=== PATIENT | female | born 1985 | race Caucasian/White ===

== ENCOUNTER 2017-02-14 20:36 | Emergency (ER) | payer MEDICAID, OTHER ==
[2017-02-14 21:15] VITALS: BP 135/91; PULSE 90; TEMP 99.4; O2SAT 98
[2017-02-14] MEDS ORDERED: Promethazine/Cod 6.25mg-10mg/5ml Syr UD PO STA (21:42)
[2017-02-14] MEDS ORDERED: Albuterol 0.083% Inhal Sol (2.5 mg/3 mL) UD IH STA (21:42)
[2017-02-14] MEDS ORDERED: Albuterol 0.083% Inhal Sol (2.5 mg/3 mL) UD ONE (21:48)
[2017-02-14] MEDS ORDERED: Promethazine/Cod 6.25mg-10mg/5ml Syr UD ONE (21:48)
--- NOTE | 2017-02-14 21:48 | C.PDOC ---
History Of Present Illness 31 y/o female with PMHx of asthma presents to ED for evaluation of URI symptoms associated with nasal congestion, sore throat and dry cough for 4 days. Patient was seen by PMD and was given Azithromycin with no improvement. Patient reports , " my chest in on fire", occasional dry cough noted in ED. Patient denies high fever, chills, dizziness, headache, drooling, neck pain, dysphagia, dyspnea, wheezing, abd. pain, n/v/d, denies recent travel or sick contact. Ambulate to Ed for evaluation, not in any apparent distress. Time Seen by Provider: 02/14/17 21:21 Chief Complaint (Nursing): Flu-like Symptoms History Per: Patient History/Exam Limitations: no limitations Onset/Duration Of Symptoms: Days Current Symptoms Are (Timing): Still Present Associated Symptoms: Cough, Nasal Congestion Past Medical History Reviewed: Historical Data, Nursing Documentation, Vital Signs Vital Signs: Last Vital Signs Temp 99.4 F 02/14/17 21:12 Pulse 90 02/14/17 21:12 Resp 16 02/14/17 21:12 BP 135/91 H 02/14/17 21:12 Pulse Ox 98 02/14/17 21:50 - Medical History PMH: Asthma Surgical History: Cholecystectomy Family History: States: Unknown Family Hx - Social History Hx Tobacco Use: Yes Hx Alcohol Use: Yes Hx Substance Use: No - Immunization History Hx Tetanus Toxoid Vaccination: No Hx Influenza Vaccination: No Hx Pneumococcal Vaccination: No Review Of Systems Except As Marked, All Systems Reviewed And Found Negative. Constitutional: Negative for: Fever, Chills ENT: Positive for: Nose Congestion Cardiovascular: Negative for: Chest Pain Respiratory: Positive for: Cough Gastrointestinal: Negative for: Nausea, Vomiting, Diarrhea Skin: Negative for: Rash Neurological: Negative for: Weakness, Headache, Dizziness Physical Exam - Physical Exam Appears: Non-toxic, No Acute Distress Skin: Normal Color, Warm, No Rash Ear(s): Bilateral: Normal Nose: Discharge (B/L nasal congestion with scant clear rhinorhea) Oral Mucosa: Moist, No Drooling Throat: Normal, No Erythema, No Exudate, No Drooling Neck: Supple Chest: Symmetrical Cardiovascular: Rhythm Regular, No Murmur Respiratory: No Decreased Breath Sounds, No Accessory Muscle Use, No Rales, No Rhonchi, Wheezing (Scattered right base wheezing) Gastrointestinal/Abdominal: Soft, No Tenderness, No Guarding, No Rebound Extremity: No Pedal Edema Neurological/Psych: Oriented x3, Normal Speech, Normal Cognition ED Course And Treatment O2 Sat by Pulse Oximetry: 98 (RA) Pulse Ox Interpretation: Normal - Radiology CXR: Interpreted by Me, Viewed By Me CXR Interpretation: Yes: No Acute Disease Progress Note: On re-evaluation, pt is afebrile, hemodynamicaly stable. Non- toxic. Tolerate Po well in ED. PulseOx 98% RA. neck: (-) meningeal sign. ENT : no acute findings. Lungs: CTA B/L, BS equal B/L. ABd: benign. CXR- normal study. Pt has clinical findings c/w bronchitis, hx of asthma. Pt advised on course of ds, counceled on smoking cessation. refl. to f/u with PMD in 2-3 days for re-eval. reutrn to ED if any worsening or new changes. Disposition Counseled Patient/Family Regarding: Studies Performed, Diagnosis, Need For Followup, Rx Given - Disposition Referrals: Aram Meza MD [Staff Provider] - Disposition: HOSPITALIZED Disposition Time: 22:22 Condition: STABLE Additional Instructions: Encourage fluids Continue antibiotic as initiated by PMD Take medication that received today as prescribed Follow up with PMD in 2-3 days for re-evaluation. Return to ED if any worsening or new changes. Prescriptions: Albuterol HFA [Ventolin HFA 90 mcg/actuation (8 g)] 1 puff IH Q6 #1 inhaler Prednisone [Deltasone] 40 mg PO DAILY #6 tablet Promethazine/Codeine [Phenergan/Codeine Oral Syrup] 5 ml PO Q6 #60 ml Instructions: Acute Bronchitis (ED), How to Stop Smoking (ED) - Clinical Impression Clinical Impression: Bronchitis - PA / METALLURGICAL TECHNICIAN / Resident Statement MD/DO has reviewed & agrees with the documentation as recorded. - Scribe Statement The provider has reviewed the documentation as recorded by the Lexus Garland All medical record entries made by the Scribrobyn were at my direction and personally dictated by me. I have reviewed the chart and agree that the record accurately reflects my personal performance of the history, physical exam, medical decision making, and the department course for this patient. I have also personally directed, reviewed, and agree with the discharge instructions and disposition.
[2017-02-14 22:42] VITALS: RESP 20
--- NOTE | 2017-02-15 11:00 | RAD ---
HISTORY: Cough COMPARISON: Chest x-ray performed 04/14/15 TECHNIQUE: Chest PA and lateral FINDINGS: LUNGS: No focal consolidation. Please note that chest x-ray has limited sensitivity for the detection of pulmonary masses. PLEURA: No significant pleural effusion identified. No definite pneumothorax . CARDIOVASCULAR: The cardiomediastinal silhouette appears within normal limits of size. OSSEOUS STRUCTURES: No acute osseous abnormality identified. VISUALIZED UPPER ABDOMEN: Unremarkable. OTHER FINDINGS: None. IMPRESSION: No focal consolidation, significant pleural effusion, or definite pneumothorax identified.
== END 2017-02-14 22:41 | disposition short-term general hospital (02) ==
LOC: C.ER 20:36
DX: J40 Bronchitis, not specified as acute or chronic (principal)

== ENCOUNTER 2018-06-07 12:28 | Emergency (ER) | payer OTHER ==
[2018-06-07 12:41] VITALS: BMI 31.2
[2018-06-07 12:47] VITALS: BP 147/93; PULSE 86; RESP 16; TEMP 99; O2SAT 95
== END 2018-06-07 12:42 | disposition left against medical advice (07) ==
LOC: C.ER 12:28
DX: Z02.89 Encounter for other administrative examinations (principal); R10.9 Unspecified abdominal pain